=== PATIENT | female | born 1990 | race Caucasian/White ===

== ENCOUNTER 2020-04-23 16:04 | Emergency (ER) | payer OTHER, SELFPAY ==
[2020-04-23 16:10] VITALS: BP 133/85; PULSE 101; RESP 20; TEMP 36.8; O2SAT 98
--- NOTE | 2020-04-23 16:21 | ED.EXTPRO ---
HPI - Extremity Problem General Chief complaint: Extremity Injury, Upper Stated complaint: Right Elbow injury Time Seen by Provider: 04/23/20 16:15 Source: patient and RN notes reviewed Mode of arrival: ambulatory Limitations: no limitations History of Present Illness HPI Narrative: Patient presents today complaining of right elbow pain x4 days. Denies any injury or trauma. Denies radiation of the pain. Denies numbness or tingling in the arm or hand. Patient states that prior to onset of symptoms, she was lifting multiple cases of soda at work. She works at [employer]. Currently rates her pain 8/10, which increases with movement. She has been taking ibuprofen with mild relief. MD Complaint: extremity pain Related Data Allergies Allergy/AdvReac Type Severity Reaction Status Date / Time Penicillins Allergy Unknown Unknown Verified 10/22/18 17:38 Review of Systems Review of Systems: Narrative: CONSTITUTIONAL: Denies body aches, fever, chills, or sweats. EYES: Denies visual changes, redness, or discharge. ENT: Denies rhinorrhea, congestion, sore throat, or otalgia. CARDIOVASCULAR: Denies chest pain, palpitations, or edema. RESPIRATORY: Denies cough or dyspnea. GASTROINTESTINAL: Denies abdominal pain, nausea, vomiting, or diarrhea. GENITOURINARY: Denies dysuria or hematuria. SKIN: Denies rash, itching, or wounds. MUSCULOSKELETAL: Denies back pain, or myalgia. +Right elbow pain NEUROLOGIC: Denies headache, numbness, tingling, or weakness. PSYCH: Denies depression or anxiety. PMFSH Comments At time of signature, I have reviewed and agree with nursing past medical, surgical, social and family history unless otherwise noted. Please see nursing chart for further information. There is no relevant family history pertinent to the presenting complaint Exam Narrative: Exam Narrative: GENERAL: Well-appearing, well-nourished, and in no acute distress. HEAD: Normocephalic, atraumatic. EYES: EOMI. No redness or drainage. Conjunctivae normal. ENT: Mucous membranes pink and moist. NECK: Normal AROM. CHEST: No respiratory distress. EXTREMITIES: Right elbow:No ecchymosis, erythema, or edema to the elbow. Tenderness to the medial epicondyle. Pain with full extension of the elbow. No pain to the olecranon process or lateral epicondyle. Distal sensation intact. Capillary refill normal. Radial pulse normal. SKIN: Warm, dry, no rash. Capillary refill normal. Normal skin turgor. NEURO: No focal deficits. Alert and oriented x3. Gait steady. PSYCH: Normal affect. No signs of depression or anxiety. Course Vital Signs Vital signs: Vital Signs Temperature 98.3 F 04/23/20 16:10 Pulse Rate 101 H 04/23/20 16:10 Respiratory Rate 20 04/23/20 16:10 Blood Pressure 133/85 04/23/20 16:10 Pulse Oximetry 98 04/23/20 16:10 Temperature 98.3 F 04/23/20 16:10 Pulse Rate 101 H 04/23/20 16:10 Respiratory Rate 04/23/20 16:10 Blood Pressure 133/85 04/23/20 16:10 Pulse Oximetry 98 04/23/20 16:10 Reviewed. Pt has been instructed to follow up with her PCP regarding her elevated blood pressure today. MDM - Extremity (Nontraumatic) Differential Diagnosis Differential diagnosis: Likely other (Bursitis, tendinitis, elbow strain, ulnar nerve compression) Critical Care Time Critical Care Time Critical Care Time: No Discharge Plan Discharge Clinical Impression: Medial epicondylitis of right elbow Patient Disposition: Home, Self-Care Condition: Stable Instructions: Tendinitis (ED) Additional Instructions: Please take the Prednisone as directed. Continue ibuprofen at home for pain. Rest the arm, and try to decrease your lifting until it starts feeling better. Follow-up with your PCP in 1 week if symptoms are not improving. Your blood pressure was elevated above 120/80 today at Urgent Care. This puts you above the threshold for follow up. Please schedule a followup visit with your personal physician
== END 2020-04-23 16:30 | disposition home or self-care (01) ==
PROVIDERS: Emergency Provider Nurse Practitioner
DX: M77.01 Medial epicondylitis, right elbow (principal)
CPT/HCPCS: 99213; G0463

== ENCOUNTER 2020-07-12 17:40 | Emergency (ER) | payer OTHER, SELFPAY ==
--- NOTE | ~2020-07-12 | XR_ITS ---
EXAMINATION: XR chest 2V DATE: 07/12/2020 18:22 INDICATION: Cough TECHNIQUE: PA and lateral views of the chest are obtained. COMPARISON: 10/22/2018 FINDINGS: The lungs are free of acute opacities. There is no pleural effusion or pneumothorax. The ca rdiomediastinal silhouette is normal. There is mild thoracic spondylosis. IMPRESSION: 1. No acute cardiopulmonary abnormality. Reviewed, dictated and finalized at location A.
[2020-07-12 17:50] VITALS: BP 133/81; PULSE 103; RESP 18; TEMP 37.4; O2SAT 96
--- NOTE | 2020-07-12 18:13 | ED.URI ---
HPI - URI/Sore Throat General Chief Complaint: Upper Respiratory Infection Stated Complaint: cough/sore throat Time Seen by Provider: 07/12/20 18:03 Source: patient and RN notes reviewed Mode of arrival: ambulatory Limitations: no limitations History of Present Illness HPI Narrative: Patient presents today with a 10-day history of cough that is productive only at night, clear nasal drainage. Reports fever initially for the first couple of days, but this has since resolved. Denies shortness of breath, sore throat, ear pain, nasal congestion. Denies sick contacts. She has been taking [id number] medication without much relief. No history of asthma or COPD. MD elicited complaint: cough Related Data Allergies Allergy/AdvReac Type Severity Reaction Status Date / Time Penicillins Allergy Unknown Unknown Verified 07/12/20 18:05 benzonatate AdvReac Mild Nausea Verified 07/12/20 18:51 [From Kylie Leonard] Review of Systems Review of Systems: Narrative: CONSTITUTIONAL: Denies body aches, fever, chills, or sweats. EYES: Denies visual changes, redness, or discharge. ENT: Denies congestion, sore throat, or otalgia. + Rhinorrhea CARDIOVASCULAR: Denies chest pain, palpitations, or edema. RESPIRATORY: Denies dyspnea. + Cough GASTROINTESTINAL: Denies abdominal pain, nausea, vomiting, or diarrhea. GENITOURINARY: Denies dysuria or hematuria. SKIN: Denies rash, itching, or wounds. MUSCULOSKELETAL: Denies back pain, joint pain, or myalgia. NEUROLOGIC: Denies headache, numbness, tingling, or weakness. PSYCH: Denies depression or anxiety. PMFSH Comments At time of signature, I have reviewed and agree with nursing past medical, surgical, social and family history unless otherwise noted. Please see nursing chart for further information. There is no relevant family history pertinent to the presenting complaint Exam Narrative: Exam Narrative: GENERAL: Well-appearing, well-nourished, and in no acute distress. HEAD: Normocephalic, atraumatic. EYES: EOMI. No redness or drainage. Conjunctivae normal. ENT: Mucous membranes pink and moist. Nares clear. No rhinorrhea. TMs normal bilaterally. Throat normal. Uvula midline. NECK: Normal AROM. Supple. No lymphadenopathy. CHEST: No respiratory distress. Very slight expiratory wheeze in the right upper lobe, otherwise clear. HEART: Regular rate and rhythm. No murmur appreciated. Normal peripheral pulses. ABDOMEN: Soft, nontender, nondistended, normal active bowel sounds. MUSCULOSKELETAL: No bony tenderness. EXTREMITIES: Normal range of motion. No edema. SKIN: Warm, dry, no rash. Capillary refill normal. Normal skin turgor. NEURO: No focal deficits. Alert and oriented x3. Gait steady. PSYCH: Normal affect. No signs of depression or anxiety. Course Vital Signs Vital signs: Vital Signs Temperature 99.4 F 07/12/20 17:50 Pulse Rate 103 H 07/12/20 17:50 Respiratory Rate 18 07/12/20 17:50 Blood Pressure 133/81 07/12/20 17:50 Pulse Oximetry 96 07/12/20 17:50 Temperature 99.4 F 07/12/20 17:50 Pulse Rate 103 H 07/12/20 17:50 Respiratory Rate 18 07/12/20 17:50 Blood Pressure 133/81 07/12/20 17:50 Pulse Oximetry 96 07/12/20 17:50 Reviewed. Pt has been instructed to follow up with her PCP regarding her elevated blood pressure today. MDM - URI/Sore Throat Differential Diagnosis Differential diagnosis: Likely upper respiratory infection, otitis media, viral infection, bronchitis and other (Pneumonia) Imaging Data Radiologist's impression: ITS Impressions Chest X-Ray 07/12/20 18:24 IMPRESSION: 1. No acute cardiopulmonary abnormality. Critical Care Time Critical Care Time Critical Care Time: No Discharge Plan Discharge Clinical Impression: Bronchitis Patient Disposition: Home, Self-Care Condition: Stable Instructions: Acute Bronchitis (ED) Additional Instructions: Your x-ray is negative for pneumonia today. You pena
== END 2020-07-12 18:45 | disposition home or self-care (01) ==
PROVIDERS: Emergency Provider Nurse Practitioner
DX: R05 Cough (principal)
CPT/HCPCS: 71046; 99213; G0463

== ENCOUNTER 2023-09-04 21:18 | Emergency (ER) | payer OTHER, SELFPAY ==
[2023-09-04 21:31] VITALS: BP 131/78; PULSE 71; RESP 20; TEMP 36.4; O2SAT 97
== END 2023-09-04 21:40 | disposition left against medical advice (07) ==
DX: J02.9 Acute pharyngitis, unspecified (principal)
CPT/HCPCS: 99199